=== PATIENT | male | born 1965 | race Caucasian/White ===

== ENCOUNTER 2017-12-09 10:11 | Emergency (ER) | payer BC ==
--- NOTE | 2017-12-09 10:44 | RAD ---
INDICATION: Atraumatic shoulder pain COMPARISON: June 12, 2008 TECHNIQUE: Routine frontal, Y and axial views were obtained. FINDINGS: There are no acute bony findings. There is an old distal clavicular fracture versus ossicles. There is mild glenohumeral osteoarthritis. The soft tissues are normal. IMPRESSION: OLD MILD DEGENERATIVE AND POSTTRAUMATIC CHANGES. NO ACUTE FINDINGS
--- NOTE | 2017-12-09 10:48 | ED ---
Upper Extremity Pain - HPI Summary HPI Summary: 52 year male presents with right shoulder pain the past week. He states that the pain is worst when he tries to lift his arm overhead. He denies any weakness. Denies any numbness or tingling. No injury that he knows of. Has had issues with the shoulder previously but has never been this bad. States pain is located over the entire shoulder. He is unable to reach behind him. Has been taking ibuprofen with some relief. No chest pressures or shortness of breath. He is left-handed. 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 - History of Current Complaint Chief Complaint: EDShouPamela Stated Complaint: RT SHOULDER PAIN Time Seen by Provider: 12/09/17 10:21 - Allergies/Home Medications Allergies/Adverse Reactions: Allergies Allergy/AdvReac Type Severity Reaction Status Date / Time No Known Allergies Allergy Verified 12/09/17 10:17 PMH/Surg Hx/FS Hx/Imm Hx Endocrine/Hematology History: Denies: Hx Anticoagulant Therapy Cardiovascular History: Denies: Hx Myocardial Infarction - Surgical History Surgery Procedure, Year, and Place: right knee several years ago Infectious Disease History: No Infectious Disease History: Denies: Traveled Outside the [place] in Last 30 Days - Family History Known Family History: Positive: Hypertension - Social History Alcohol Use: Occasionally Substance Use Type: Reports: None Smoking Status (MU): Light Every Day Tobacco Smoker Review of Systems Negative: Fever Negative: Chest Pain Negative: Shortness Of Breath Positive: Myalgia - right shoulder pain All Other Systems Reviewed And Are Negative: Yes Physical Exam Triage Information Reviewed: Yes Vital Signs On Initial Exam: Initial Vitals Temp Pulse Resp BP Pulse Ox 98.9 F 85 15 124/71 98 12/09/17 10:14 12/09/17 10:14 12/09/17 10:14 12/09/17 10:14 12/09/17 10:14 Vital Signs Reviewed: Yes Appearance: Positive: Well-Appearing Skin: Positive: Warm, Dry Head/Face: Positive: Normal Head/Face Inspection Eyes: Positive: Normal, Conjunctiva Clear ENT: Positive: Pharynx normal Respiratory/Lung Sounds: Positive: Clear to Auscultation, Breath Sounds Present Cardiovascular: Positive: Normal, RRR Musculoskeletal: Positive: Limited @ - right shoulder, Other - good pulses, sensation grossly intact. neg yearsgons, pos longo, unable to push off belly or reach behind back, neg drop arm Neurological: Positive: Normal, Reflexes Intact - biceps Psychiatric: Positive: Normal Diagnostics - Vital Signs Vital Signs Temp Pulse Resp BP Pulse Ox 12/09/17 10:14 98.9 F 85 15 124/71 98 - Laboratory Lab Statement: Any lab studies that have been ordered have been reviewed, and results considered in the medical decision making process. - Radiology shoulder Xray Interpretation: Positive (See Comments) - IMPRESSION: OLD MILD DEGENERATIVE AND POSTTRAUMATIC CHANGES. NO ACUTE FINDINGS Radiology Interpretation Completed By: Radiologist Course/Dx - Course Course Of Treatment: 52 year male presents with right shoulder pain the past week. He states that the pain is worst when he tries to lift his arm overhead. He denies any weakness. Denies any numbness or tingling. No injury that he knows of. Has had issues with the shoulder previously but has never been this bad. States pain is located over the entire shoulder. He is unable to reach behind him. Has been taking ibuprofen with some relief. No chest pressures or shortness of breath. He is left-handed. 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 On exam unable to perform belly test or lift off test due to pain. pos Longo. neurovascular intact. X-ray shows degnerative changes. gave flexeril for pain. gave referral for orthopedic. Patient understands and agree with the plan. - Diagnoses Differential Diagnosis/HQI/PQRI: Positive: Fracture (Closed), Strain, Sprain Provider Diagnoses: Right shoulder pain Discharge - Sign-Out/Discharge Documenting (check all that apply): Patient Departure - Discharge Plan Condition: Good Disposition: HOME Prescriptions: Cyclobenzaprine TAB* [Flexeril 10 MG TAB*] 10 mg PO TID PRN #21 tab PRN Reason: Pain Patient Education Materials: Shoulder Pain (ED) Referrals: [facility] [place] [facility] REFERRAL [Outside] Jacob Morfin MD [Medical Doctor] - Additional Instructions: Take Tylenol and ibuprofen every 6 hours as needed for pain take Flexeril three times a day for pain Ice/heat try to work on range of motion for shoulder Follow up with ortho Return to ED if develop any new or worsening symptoms - Billing Disposition and Condition Condition: GOOD Disposition: Home
[2017-12-09 10:58] VITALS: BP 137/70
== END 2017-12-09 10:58 | disposition home or self-care (01) ==
LOC: ED 10:11
DX: M25.511 Pain in right shoulder (principal); M19.011 Primary osteoarthritis, right shoulder; Z82.49 Family history of ischemic heart disease and other diseases of the circulatory system; F17.200 Nicotine dependence, unspecified, uncomplicated
CPT/HCPCS: 99282

== ENCOUNTER 2021-03-23 17:32 | Inpatient (IN) ==
[2021-03-23 17:47] LABS: Hematocrit 41 % (42-52); Hemoglobin 13.7 g/dL (14.0-18.0); Mean Corpuscular HGB Conc 34 g/dL (31-36); Mean Corpuscular Hemoglobin 33 pg (27-31); Mean Corpuscular Volume 99 fL (80-94); Mean Platelet Volume 7.7 fL (7.4-10.4); Platelet Count 215 10^3/uL (150-450); Red Blood Count 4.12 10^6 /uL (4.18-5.48); Red Cell Distribution Width 13 % (10-15); White Blood Count 6.8 10^3/uL (3.5-10.8)
[2021-03-23] MEDS ORDERED: Iodixanol (CONTRAST) 320 MG/ML 100 ML SDV IV ONE (17:56)
[2021-03-23 17:59] LABS: INR 0.98 (0.86-1.15)
[2021-03-23 18:04] LABS: Ammonia 38 mcmol/L (16-53)
[2021-03-23 18:05] LABS: ALT 27 U/L (7-52); AST 33 U/L (13-39); Albumin 4.3 g/dL (3.2-5.2); Albumin/Globulin Ratio 1.9 (1-3); Alkaline Phosphatase 50 U/L (35-149); Anion Gap 10 mmol/L (2-11); Blood Urea Nitrogen 16 mg/dL (6-24); CO2 Carbon Dioxide 27 mmol/L (22-32); Calcium 8.9 mg/dL (8.6-10.3); Chloride 104 mmol/L (101-111); Globulin 2.3 g/dL (2-4); Glucose 235 mg/dL (70-100); Potassium 3.7 mmol/L (3.5-5.0); Sodium 141 mmol/L (135-145); Total Protein 6.6 g/dL (6.4-8.9)
[2021-03-23 18:07] LABS: Troponin I 0.01 ng/mL (<0.03)
[2021-03-23 18:24] LABS: ABS Basophils 0.1 10^3/ul (0-0.2); ABS Eosinophils 0.2 10^3/ul (0-0.6); ABS Lymphocytes 2.8 10^3/ul (1.0-4.8); ABS Monocytes 0.4 10^3/ul (0-0.8); ABS Neutrophils 3.4 10^3/ul (1.5-7.7); Eosinophil % 3.1 %; Lymphocyte % 40.8 %; Nucleated Red Blood Cells % 0.1
[2021-03-23] MEDS ORDERED: Ondansetron 4 mg VIAL 2 MG/ML 2 ml VIAL IV ONE (18:24)
[2021-03-23 18:30] LABS: Acetaminophen < 15 mcg/mL; Alcohol, S < 13 mg/dL (<13); Salicylate < 2.50 mg/dL (<30)
[2021-03-23 18:45] LABS: TSH Ultra Thyroid Stim Horm 11.82 mcIU/mL (0.34-5.60)
[2021-03-23 18:52] LABS: BNP 64 pg/mL (<=100)
[2021-03-23] MEDS ORDERED: Lactated Ringers 1000 ml BAG 1,000 ML IV ONE (19:30)
[2021-03-23] MEDS ORDERED: Folic Acid 1 mg SYRINGE 0.2 ML SYRINGE IV SCH (21:00)
[2021-03-23] MEDS ORDERED: Azithromycin 500 mg/250 ml NS 500 MG/250 ML BAG IVPB ONE (21:30)
[2021-03-23 21:36] LABS: Magnesium 2.1 mg/dL (1.9-2.7); Phosphorus 9.3 mg/dL (2.5-5.0)
[2021-03-23 21:53] LABS: Rapid COVID-19 Molecular Undetected (Undetected)
[2021-03-23 22:02] LABS: Urine Benzodiazepine Screen None Detected (None Detect); Urine Cannabinoids Screen Presumptive Positive (None Detect); Urine Opiates Screen None Detected (None Detect)
[2021-03-23 22:09] LABS: Urine Appearance Cloudy; Urine Bacteria Absent (Absent); Urine Bilirubin Negative (Negative); Urine Blood Negative (Negative); Urine Color Yellow; Urine Glucose Negative (Negative); Urine Granular Casts Present (Absent); Urine Ketones Trace (Negative); Urine Nitrite Negative (Negative); Urine Protein Negative (Negative); Urine Red Blood Cell Absent (Absent); Urine Specific Gravity 1.049 (1.002-1.030); Urine Squamous Epithelial Cell Present (Absent); Urine Urobilinogen Negative (Negative); Urine White Blood Cell Absent (Absent)
[2021-03-23] MEDS: Heparin 5000 UNITS/ML 1 mL VIAL SUBCUT SCH (22:21)
[2021-03-23] MEDS: cefTRIAXone 1 gm/50 mL NS BAG 1 GM/50 ML BAG IVPB SCH (22:21)
[2021-03-23 22:49] LABS: T4, Total 6.92 mcg/dL (6.09-12.23)
[2021-03-23 22:58] LABS: Total T3 159 ng/dL (87-178)
[2021-03-23] MEDS ORDERED: Pantoprazole VIAL 40 MG VIAL IV SCH (23:00)
[2021-03-23 23:12] LABS: PCO2 Arterial 55 mmHg (35-45); PO2 Arterial 119 mmHg (80-100)
[2021-03-23] MEDS: Folic Acid IV 1 MG in NS 0.9% 50 ML 50 ML IVPB SCH (23:26)
[2021-03-23] MEDS: Thiamine 100 MG/ML 2 ml VIAL 500 MG in NS 0.9% 250 ml 250 ML IV SCH (23:26)
[2021-03-24] MEDS: Heparin 5000 UNITS/ML 1 mL VIAL SUBCUT SCH ×2 (05:20→13:41)
[2021-03-24 05:37] LABS: ABS Lymphocytes 0.6 10^3/ul (1.0-4.8); ABS Monocytes 0.7 10^3/ul (0-0.8); ABS Neutrophils 16.3 10^3/ul (1.5-7.7); Hematocrit 39 % (42-52); Hemoglobin 13.1 g/dL (14.0-18.0); Lymphocyte % 3.1 %; Mean Corpuscular HGB Conc 33 g/dL (31-36); Mean Corpuscular Hemoglobin 33 pg (27-31); Mean Corpuscular Volume 98 fL (80-94); Platelet Count 192 10^3/uL (150-450); Red Blood Count 4.02 10^6 /uL (4.18-5.48); Red Cell Distribution Width 13 % (10-15); White Blood Count 17.6 10^3/uL (3.5-10.8)
[2021-03-24 05:48] LABS: INR 1.04 (0.86-1.15)
[2021-03-24 05:54] LABS: Calcium 8.6 mg/dL (8.6-10.3); Magnesium 1.9 mg/dL (1.9-2.7); Phosphorus 4.9 mg/dL (2.5-5.0); Potassium 4.7 mmol/L (3.5-5.0)
[2021-03-24 05:55] LABS: HDL Cholesterol 60.1 mg/dL
[2021-03-24 07:17] LABS: PCO2 Arterial 58 mmHg (35-45); PO2 Arterial 172 mmHg (80-100)
[2021-03-24] MEDS: Folic Acid IV 1 MG in NS 0.9% 50 ML 50 ML IVPB SCH (09:33)
[2021-03-24] MEDS: Pantoprazole VIAL 40 MG VIAL IV SCH ×2 (09:33→20:10)
[2021-03-24] MEDS: Multivitamins ADULT w/MIN LIQ 15 ML UDC PO SCH (09:33)
[2021-03-24] MEDS: Thiamine 100 MG/ML 2 ml VIAL 500 MG in NS 0.9% 250 ml 250 ML IV SCH ×3 (09:33→20:09)
[2021-03-24] MEDS: cefTRIAXone 1 gm/50 mL NS BAG 1 GM/50 ML BAG IVPB SCH (20:09)
[2021-03-24] MEDS: Enoxaparin 40 MG/0.4 ML SYR SUBCUT SCH (20:10)
[2021-03-24 20:29] LABS: PCO2 Arterial 45 mmHg (35-45); PO2 Arterial 107 mmHg (80-100)
[2021-03-25 05:44] LABS: Hematocrit 35 % (42-52); Hemoglobin 11.5 g/dL (14.0-18.0); Mean Corpuscular HGB Conc 33 g/dL (31-36); Mean Corpuscular Hemoglobin 33 pg (27-31); Mean Corpuscular Volume 98 fL (80-94); Mean Platelet Volume 8.3 fL (7.4-10.4); Platelet Count 150 10^3/uL (150-450); Red Blood Count 3.55 10^6 /uL (4.18-5.48); Red Cell Distribution Width 13 % (10-15)
[2021-03-25 05:50] LABS: INR 1.15 (0.86-1.15)
[2021-03-25 06:01] LABS: Calcium 8.4 mg/dL (8.6-10.3); Phosphorus 1.6 mg/dL (2.5-5.0)
[2021-03-25] MEDS ORDERED: Potassium Phosphate IV 15 MMOLE in NS 0.9% 250 ml 250 ML IVPB ONE (07:12)
[2021-03-25] MEDS ORDERED: Potassium Phosphate IV 30 MMOLE in NS 0.9% 250 ml 250 ML IVPB ONE (08:30)
[2021-03-25] MEDS: Folic Acid IV 1 MG in NS 0.9% 50 ML 50 ML IVPB SCH (10:50)
[2021-03-25] MEDS: Multivitamins ADULT w/MIN LIQ 15 ML UDC PO SCH (10:52)
[2021-03-25] MEDS: Pantoprazole VIAL 40 MG VIAL IV SCH (10:55)
[2021-03-25] MEDS: Thiamine 100 MG/ML 2 ml VIAL 500 MG in NS 0.9% 250 ml 250 ML IV SCH ×3 (11:30→21:06)
[2021-03-25] MEDS: cefTRIAXone 1 gm/50 mL NS BAG 1 GM/50 ML BAG IVPB SCH (20:05)
[2021-03-25] MEDS: Enoxaparin 40 MG/0.4 ML SYR SUBCUT SCH (20:05)
[2021-03-26] MEDS ORDERED: Multivitamins/Minerals TAB PO SCH (07:48)
[2021-03-26 08:30] LABS: ABS Lymphocytes 0.9 10^3/ul (1.0-4.8); ABS Monocytes 0.6 10^3/ul (0-0.8); ABS Neutrophils 7.3 10^3/ul (1.5-7.7); Eosinophil % 0.1 %; Hematocrit 35 % (42-52); Lymphocyte % 10.1 %; Mean Corpuscular HGB Conc 34 g/dL (31-36); Mean Corpuscular Hemoglobin 33 pg (27-31); Mean Corpuscular Volume 95 fL (80-94); Mean Platelet Volume 8.2 fL (7.4-10.4); Platelet Count 164 10^3/uL (150-450); Red Blood Count 3.69 10^6 /uL (4.18-5.48); Red Cell Distribution Width 12 % (10-15); White Blood Count 8.9 10^3/uL (3.5-10.8)
[2021-03-26 08:52] LABS: Calcium 8.5 mg/dL (8.6-10.3); Magnesium 1.8 mg/dL (1.9-2.7); Potassium 3.5 mmol/L (3.5-5.0)
[2021-03-26] MEDS ORDERED: Magnesium Sulfate 2 gm BAG 2 GM/50 ML BAG IVPB ONE (10:20)
[2021-03-26 15:43] VITALS: BP 142/70
[2021-03-26] MEDS ORDERED: Thiamine 100 MG/ML 2 ml VIAL 250 MG in NS 0.9% 100 ml BAG 100 ML IV SCH (21:00)
== END 2021-03-26 18:00 | disposition home or self-care (01) | DRG 52 ==
LOC: ED 17:32 → ICU 20:19 → MEDTELE 03-25 14:58
PROVIDERS: ADMIT Internal Medicine; ATTEND Internal Medicine